=== PATIENT | female | born 1980 | race Caucasian/White ===

== ENCOUNTER 2018-09-19 09:22 | Emergency (ER) | payer MEDICAID, OTHER ==
--- NOTE | 2018-09-19 10:10 | EDPHY ---
H & P Time Seen by Provider: 09/19/18 09:49 HPI/ROS: CHIEF COMPLAINT: Lightheaded, dizziness, tingling in fingers HISTORY OF PRESENT ILLNESS: The patient is a 38-year-old female who presents emergency department multiple complaints. The patient was having lash extensions placed. She was about 45 min into her procedure (this entails including eye lashes onto her current eye lashes) when her symptoms started. She became dizzy and slightly lightheaded. She then began to breathe rapidly. She developed tingling in her fingers bilaterally. She has no chest pain or shortness of breath. No abdominal pain. No nausea or vomiting. Patient has nothing out of the ordinary recently. She has done yoga for the past few days with no complaints. REVIEW OF SYSTEMS: 10 systems were reveiwed and are negative with the exception of the elements mentioned in the history of present illness. Past Medical/Surgical History: Includes ovarian hyperstimulation syndrome Past surgical history: Includes breast augmentation, Smoking Status: Never smoked Physical Exam: Vitals noted GENERAL: Anxious appearing, in no acute distress, alert. HEENT: Eyes normal to inspection, normal pharynx, no signs of dehydration. NECK: Normal, supple. RESPIRATORY: Clear to auscultation bilaterally, no rales, rhonchi or wheezing. CVS: Regular rate and rhythm, no rubs, murmurs, or gallops. ABDOMEN: Soft, nontender, nondistended, no organomegaly. BACK: Normal to inspection, no CVA tenderness. SKIN: Normal color, no rash, warm, dry. No pallor. EXTREMITIES: No pedal edema, no calf tenderness, no Homans sign or cords, no joint swelling. NEURO/PSYCH: Alert and oriented, anxious appearing, normal motor sensory exam. No obvious cranial nerve deficit. Constitutional: Initial Vital Signs Temperature (C) 36.8 C 09/19/18 09:27 Heart Rate 79 09/19/18 09:27 Respiratory Rate 18 09/19/18 09:27 Blood Pressure 114/68 09/19/18 09:27 O2 Sat (%) 100 09/19/18 09:27 O2 Delivery Mode Room Air Allergies/Adverse Reactions: No Known Allergies Allergy (Verified 09/19/18 09:26) Home Medications: Medication Instructions Recorded Docosahexanoic Acid [Dha] 1 cap PO DAILY 12/19/15 Iron Polysacch/Iron Heme Polyp 1 tab PO DAILY 12/19/15 [Bifera] 1 tab PO DAILY 12/19/15 Docusate Sodium [Colace 100 MG (*)] 100 mg PO BID PRN #60 cap 12/22/15 Hydrocodone/APAP 5/325 [[place]menia 1 tab PO Q4 PRN #30 tab 12/22/15 5/325 (*)] Ibuprofen [Motrin (*)] 600 mg PO Q6 PRN #60 tab 12/22/15 Iron Polysacch/Iron Heme Polyp 28 mg PO DAILY #30 tab 12/22/15 [Bifera] Medical Decision Making ED Course/Re-evaluation: In the emergency department I discussed possible etiologies with the patient. Answered all her questions. Patient was given normal saline 1 L IV for hydration. The patient was given Ativan 0.5 mg IV. Laboratory studies and EKG were ordered. EKG shows normal sinus rhythm, normal rate, normal axis, normal intervals. There are no ST or T-wave abnormalities. EKG is normal as interpreted by me. I rechecked the patient. She was feeling better on recheck. Her symptoms had resolved. Waiting laboratory results. CBC and chemistry unremarkable. negative. Patient was given warnings prior to leaving. She will return with worsening symptoms. She felt comfortable discharge. Differential Diagnosis: My differential includes but is not limited to dysrhythmia, electrolyte abnormality, sugar abnormality, dehydration, anxiety, hyperventilation - Data Points Laboratory Results: Laboratory Results 09/19/18 09:30 09/19/18 09:30 09/19/18 09/19/18 09/19/18 09:30 09:30 09:30 WBC 5.03 10^3/uL 10^3/uL (3.80-9.50) RBC 5.46 10^6/uL H 10^6/uL (4.18-5.33) Hgb 15.9 g/dL g/dL (12.6-16.3) Hct 46.6 % % (38.0-47.0) MCV 85.3 fL fL (81.5-99.8) MCH 29.1 pg pg (27.9-34.1) MCHC 34.1 g/dL g/dL (32.4-36.7) RDW 12.8 % % (11.5-15.2) Plt Count 280 10^3/uL 10^3/uL (150-400) MPV 9.9 fL fL (8.7-11.7) Neut % (Auto) 47.0 % % (39.3-74.2) Lymph % (Auto) 42.1 % % (15.0-45.0) [place] % (Auto) 8.3 % % (4.5-13.0) Eos % (Auto) 1.0 % % (0.6-7.6) Baso % (Auto) 1.6 % % (0.3-1.7) Nucleat RBC Rel Count 0.0 % % (0.0-0.2) Absolute Neuts (auto) 2.36 10^3/uL 10^3/uL (1.70-6.50) Absolute Lymphs (auto) 2.12 10^3/uL 10^3/uL (1.00-3.00) Absolute Monos (auto) 0.42 10^3/uL 10^3/uL (0.30-0.80) Absolute Eos (auto) 0.05 10^3/uL 10^3/uL (0.03-0.40) Absolute Basos (auto) 0.08 10^3/uL 10^3/uL (0.02-0.10) Absolute Nucleated RBC 0.00 10^3/uL 10^3/uL (0-0.01) Immature Gran % 0.0 % % (0.0-1.1) Immature Gran # 0.00 10^3/uL 10^3/uL (0.00-0.10) Sodium 140 mEq/L mEq/L (135-145) Potassium 3.8 mEq/L mEq/L (3.5-5.2) Chloride 106 mEq/L mEq/L (97-110) Carbon Dioxide 17 mEq/l L mEq/l (22-31) Anion Gap 17 mEq/L H mEq/L (6-14) BUN 10 mg/dL mg/dL (7-23) Creatinine 0.6 mg/dL mg/dL (0.6-1.0) Estimated GFR > 60 Glucose 112 mg/dL H mg/dL (70-100) Calcium 10.4 mg/dL mg/dL (8.5-10.4) Beta HCG, Qual Pending Departure - Departure Disposition: Home, Routine, Self-Care Clinical Impression: Dizziness Condition: Fair Instructions: Dizziness (ED) Additional Instructions: Return with increasing dizziness, lightheadedness, carpal spasm or any other concerns. Referrals: Patient,NotPresent [Unknown] - As per Instructions Hattie Malin MD [Medical Doctor] - 3-4 days, if not improved
[2018-09-19 11:55] LABS: PLATELET COUNT 280 10^3/uL (150-400)
[2018-09-19 12:31] VITALS: BP 118/81
--- NOTE | 2018-09-19 15:02 | CPEKG ---
Test Reason : OPEN Blood Pressure : / mmHG Vent. Rate : 078 BPM Atrial Rate : 079 BPM P-R Int : 157 ms QRS Dur : 085 ms QT Int : 401 ms P-R-T Axes : 082 099 -72 degrees QTc Int : 457 ms Sinus rhythm Borderline right axis deviation Low voltage, precordial leads Confirmed by Daniel Wilkinson [id number] on 09/19/2018 3:02:01 PM Referred By: DANIEL WILKINSON Confirmed By:Daniel Wilkinson
== END 2018-09-19 12:40 | disposition home or self-care (01) ==
LOC: EDUNIT#
DX: R42 Dizziness and giddiness (principal); R20.2 Paresthesia of skin; R09.89 Other specified symptoms and signs involving the circulatory and respiratory systems